=== PATIENT | female | born 1995 | race Two or more races ===

== ENCOUNTER 2024-01-10 16:05 | Emergency (ER) | payer OTHER ==
[~2024-01-10] VITALS: Ht 157.5 cm; Wt 56.7 kg
== END 2024-01-10 22:31 | disposition home or self-care (01) ==
LOC: ER 16:07
DX: S09.8XXA Other specified injuries of head, initial encounter (principal); X58.XXXA Exposure to other specified factors, initial encounter; Y93.18 Activity, surfing, windsurfing and boogie boarding; Y92.89 Other specified places as the place of occurrence of the external cause; Y99.8 Other external cause status